=== PATIENT | female | born 1945 | race Caucasian/White ===

== ENCOUNTER → 2017-02-13 13:54 | Outpatient (CLI) | payer MEDICARE, OTHER ==
[2015-01-17 07:07] VITALS: BMI 26.5
[~2017-02-13 13:54] MED LIST: ALBUTEROL0.63 MG/3 INH; ATROVENT 0.06%15 ML NS; AZELASTINE137 MCG/0. NASAL; DALIRESP500 MCG PO; DULERA 100 MCG8.8 GM INH; FLUTICASONE PRO16 GM NASAL; MAG-OX 400 MG400 MG PO; MUCINEX600 MG PO; MULTIPLE VITAMI1 TA1 PO; PROVENTIL HFA6.7 GM INH; REQUIP1 MG PO; SINGULAIR10 MG PO
== END | disposition home or self-care (01) ==
LOC: D.RT 02-11 09:00 → D.LAB 02-11 10:00 → D.RAD 02-11 10:30 → D.RT 13:54
DX: J44.9 Chronic obstructive pulmonary disease, unspecified (principal)

== ENCOUNTER 2017-07-24 12:17 | Day surgery (SDC) | payer MEDICARE ==
[~2017-07-24] VITALS: Ht 154.9 cm; Wt 71.8 kg
--- NOTE | ~2017-07-24 | OP ---
PATIENT NAME: SHIKHA FLORES MEDICAL RECORD: [id number] :43 LOCATION:[facility] ADMISSION DATE: SURGEON: BRANT JACOBSON DO DATE OF OPERATION: 07/24/2017 PROCEDURE: Colonoscopy with polypectomy and biopsies. INDICATIONS FOR PROCEDURE: Change in bowel habits, right lower quadrant abdominal pain, abnormal findings on CT. SCOPE: Olympus video pediatric colonoscope. MEDICATIONS: Propofol 400 mg IV per anesthesia. WITHDRAWAL TIME: 42 minutes. ESTIMATED BLOOD LOSS: Minimal. COMPLICATIONS: None. FINDINGS: Informed consent was given. The patient was made comfortable with the above medication. After reaching an adequate level of sedation by slow IV push, the patient was placed on her left side. A digital rectal examination was performed and revealed an external hemorrhoid. The endoscope was then advanced under direct visualization through the rectum to the cecum with visualization of the appendiceal orifice and ileocecal valve. In the cecum and ascending colon, there were some changes that could be consistent with colitis, with decreased vascular markings and some edematous mucosa. Random biopsies were taken from both the cecum and the ascending colon. These will be submitted for histology. In the ascending colon, there were 5 separate polyps which were benign-appearing and sessile. They ranged in size from 3-5 mm in diameter. They were removed using hot forceps in 1 piece and completely retrieved. At one of these sites, there was some bleeding, which was not stopping with cauterization on its own, so a single endoclip was placed for hemostasis successfully. In the transverse colon, there were 3 separate polyps. These were larger polyps ranging in size from 7 mm to 1 cm in diameter. These were removed using EMR technique with a saline injection for a saline pillow and snare removal. Cauterization was also used to burn any residual polypoid tissue. In the descending colon, there were two separate polyps which were benign-appearing and sessile. They ranged approximately 2-4 mm in diameter. They were removed using hot forceps in 1 piece and completely retrieved. In the sigmoid colon, there was another polyp that measured approximately 5 mm in diameter. It was removed in 1 piece using hot snare and completely retrieved. Diverticulosis of mild severity was located in the descending and sigmoid colon on this examination. Retroflexion was performed in the rectum with a normal appearing rectal valve. The endoscope was withdrawn from the patient. The patient tolerated the procedure well and there were no complications. IMPRESSION: 1. Multiple polyps as described above removed using various techniques including EMR technique with saline injection and snare removal, hot polyp forceps removal, and hot snare removal. A single endoclip was placed for hemostasis successfully at one of the polyp sites (ascending colon). 2. Diverticulosis of mild severity in the left side of the colon. OPERATIVE REPORT [id number] SHIKHA FLORES 3. Single lipoma measuring approximately 1.5-2 cm located in the transverse colon. 4. External hemorrhoids. PLAN AND RECOMMENDATIONS: 1. Discharge home when recovery parameters are met. 2. High fiber diet. 3. Follow up biopsy specimen results. 4. Continue current medications. 5. Recall colonoscopy in 3-6 months after further workup of this abdominal mass is completed. TRANSINT:[id number] Voice Confirmation ID: [id number] DOCUMENT ID: [id number] BRANT JACOBSON DO at 0842 CC: [id number] DICTATION DATE: 07/24/17 1605 [facility]: 07/24/17 1711 [facility] 07/24/17 [facility] [address] [place] [address]
[2017-07-24] MEDS ORDERED: FUROSEMIDE20 MG PO (13:30)
[2017-07-24] MEDS ORDERED: KLOR-CON 1010 MEQ PO (13:30)
[2017-07-24] MEDS ORDERED: CELEBREX50 MG PO (13:31)
[2017-07-24 13:32] VITALS: BP 131/57; Ht 154.9 cm; Wt 71.8 kg
[2017-07-24 14:50] LABS: BASOPHILS 0.2 % (0-2); EOSINOPHILS 0.9 % (0-7); HEMATOCRIT 43.7 % (36.0-48.0); HEMOGLOBIN 15.4 g/dL (12-16); IMMATURE GRANULOCYTES 0.2 % (0-5); LYMPHOCYTES 20.1 % (15-50); MCH 34.6 pg (26.0-34.0); MCHC 35.2 g/dL (31.0-37.0); MCV 98.2 fL (80.0-100.0); MEAN PLATELET VOLUME 10.2 fL (7.4-10.4); MONOCYTES 6.5 % (2-11); NEUTROPHILS 72.1 % (40-80); PLATELET COUNT 204 10x3/uL (130-400); RBC 4.45 10x6/uL (4.00-5.40); RDW 12.5 % (11.5-14.5); WBC 8.6 10x3/uL (4.8-10.8)
[2017-07-24 15:23] LABS: ANION GAP 17.5 mmol/L (8-16); CALCIUM 8.7 mg/dL (8.5-10.1); CARBON DIOXIDE 23.9 mmol/L (21.0-32.0); CREATININE - SERUM 0.9 mg/dL (0.6-1.3); POTASSIUM - SERUM 3.4 mmol/L (3.5-5.1)
== END 2017-07-24 17:30 | disposition home or self-care (01) ==
LOC: D.OPS 12:17
PROVIDERS: Anesthesiology
DX: R19.4 Change in bowel habit (principal); R10.31 Right lower quadrant pain; D12.2 Benign neoplasm of ascending colon; D12.4 Benign neoplasm of descending colon; D12.5 Benign neoplasm of sigmoid colon; D12.3 Benign neoplasm of transverse colon; F17.200 Nicotine dependence, unspecified, uncomplicated; J44.9 Chronic obstructive pulmonary disease, unspecified; M19.90 Unspecified osteoarthritis, unspecified site; Z01.812 Encounter for preprocedural laboratory examination

== ENCOUNTER 2017-07-26 09:29 | Emergency (ER) | payer MEDICARE ==
[2017-07-24 13:32] VITALS: BMI 29.9
[~2017-07-26 09:29] MED LIST changes: +CELEBREX50 MG PO; +FUROSEMIDE20 MG PO; +KLOR-CON 1010 MEQ PO
[2017-07-26 10:05] LABS: BASOPHILS 0.2 % (0-2); EOSINOPHILS 1.1 % (0-7); HEMATOCRIT 42.1 % (36.0-48.0); HEMOGLOBIN 14.8 g/dL (12-16); IMMATURE GRANULOCYTES 0.1 % (0-5); LYMPHOCYTES 19.5 % (15-50); MCH 34.4 pg (26.0-34.0); MCHC 35.2 g/dL (31.0-37.0); MCV 97.9 fL (80.0-100.0); NEUTROPHILS 69.1 % (40-80); PLATELET COUNT 192 10x3/uL (130-400); RDW 12.6 % (11.5-14.5); WBC 8.3 10x3/uL (4.8-10.8)
[2017-07-26 10:20] LABS: ALBUMIN 3.7 g/dL (3.4-5.0); ANION GAP 13.8 mmol/L (8-16); BILIRUBIN - TOTAL 0.62 mg/dL (0.2-1.3); CALCIUM 8.8 mg/dL (8.5-10.1); CARBON DIOXIDE 24.3 mmol/L (21.0-32.0); POTASSIUM - SERUM 3.1 mmol/L (3.5-5.1); PROTEIN - SERUM 6.8 g/dL (6.4-8.2)
[2017-07-26 10:32] LABS: INR 0.98 (0.85-1.17); PROTIME 12.6 SECONDS (11.6-15.0)
[2017-07-26 13:09] LABS: APPEARANCE CLEAR (CLEAR); BACTERIA MODERATE /hpf (NONE SEEN); BILIRUBIN NEGATIVE (NEGATIVE); COLOR YELLOW (YELLOW); EPITHELIAL CELLS 0-5 /hpf (0-5); GLUCOSE NEGATIVE (NEGATIVE); KETONE MODERATE mg/dL (NEGATIVE); MUCUS <1+ /lpf (NONE SEEN); NITRITE NEGATIVE (NEGATIVE); PROTEIN NEGATIVE (NEGATIVE); RED CELLS - URINE RARE /hpf (0-5); UROBILINOGEN NORMAL (NORMAL); WHITE CELLS - URINE 0-5 /hpf (0-5)
== END 2017-07-26 14:00 | disposition home or self-care (01) ==
LOC: D.ER 09:29
PROVIDERS: Emergency Medicine; Nurse Practitioner Family
DX: R10.9 Unspecified abdominal pain (principal); K52.9 Noninfective gastroenteritis and colitis, unspecified; J44.9 Chronic obstructive pulmonary disease, unspecified; F17.200 Nicotine dependence, unspecified, uncomplicated

== ENCOUNTER → 2017-10-15 20:00 | Outpatient (CLI) | payer MEDICARE ==
[2017-07-24 13:32] VITALS: BMI 29.9
== END | disposition home or self-care (01) ==
LOC: D.MAMMO 15:30
DX: Z12.31 Encounter for screening mammogram for malignant neoplasm of breast (principal)

== ENCOUNTER 2018-02-17 08:24 | Day surgery (SDC) | payer MEDICARE ==
[~2018-02-17] VITALS: Ht 154.9 cm; Wt 70.5 kg
--- NOTE | ~2018-02-17 | OP ---
PATIENT NAME: SHIKHA FLORES MEDICAL RECORD: [id number] :43 LOCATION:[facility] ADMISSION DATE: SURGEON: BRANT JACOBSON DO DATE OF OPERATION: 02/17/2018 PROCEDURE: Colonoscopy with polypectomy. INDICATIONS FOR PROCEDURE: Personal history of colon polyps. Her last colonoscopy was 07/24/2017. SCOPE: Olympus video pediatric colonoscope. MEDICATIONS: Propofol 600 mg IV per anesthesia. WITHDRAWAL TIME: 36 minutes. ESTIMATED BLOOD LOSS: Minimal. COMPLICATIONS: None. FINDINGS: Informed consent was given. The patient was made comfortable with the above medication. After reaching an adequate level of sedation by slow IV push, the patient was placed on her left side. A digital rectal examination was performed and was normal. The endoscope was then advanced under direct visualization through the rectum to the cecum, confirmed by the presence of the appendiceal orifice and ileocecal valve. The endoscope was slowly withdrawn and mucosa was carefully examined. The prep quality was fair. There were 4 polyps visualized on today's examination. The first was an ascending colon polyp, which measured approximately 6 mm in diameter. It was removed using a hot snare in 1 piece. There were 3 polyps located in the transverse colon. They were all benign-appearing and sessile. They ranged in size from 3-6 mm in diameter. One was removed using a hot snare in piecemeal fashion. The other 2 were removed using hot forceps. There was evidence of diverticulosis involving the sigmoid colon without evidence of diverticulitis. Retroflexion was performed in the rectum with a normal appearing rectal wall. The endoscope was then withdrawn from the patient. The patient tolerated the procedure well and there were no complications. IMPRESSION: 1. Four polyps as described above, removed using a combination of a hot snare and a hot forceps. 2. Diverticulosis of the sigmoid colon without diverticulitis. 3. Otherwise, normal colonoscopy. PLAN AND RECOMMENDATIONS: 1. Discharge home when recovery parameters are met. 2. Follow up biopsy specimen results. 3. Recall colonoscopy in 1-2 years pending pathology of the above removed polyps. TRANSINT:[id number] Voice Confirmation ID: [id number] DOCUMENT ID: [id number] OPERATIVE REPORT [id number] SHIKHA FLORESBRANT MURRAY DO CC: [id number] DICTATION DATE: 02/17/18 1051 PANEL MACHINE OPERATOR: 02/17/18 1101 [facility] [address] [facility] [place] [address]
[2018-02-17 08:41] LABS: HEMOGLOBIN 16.1 g/dL (12-16); MCH 34.5 pg (26.0-34.0); MCV 98.5 fL (80.0-100.0); MEAN PLATELET VOLUME 10.4 fL (7.4-10.4); RBC 4.67 10x6/uL (4.00-5.40); RDW 12.6 % (11.5-14.5); WBC 6.8 10x3/uL (4.8-10.8)
[2018-02-17] MEDS ORDERED: NASONEX NASAL S17 GM NS (09:27)
[2018-02-17 09:39] VITALS: BP 107/47; Ht 154.9 cm; Wt 70.5 kg
== END 2018-02-17 12:20 | disposition home or self-care (01) ==
LOC: D.OPS 08:24
PROVIDERS: Anesthesiology
DX: D12.2 Benign neoplasm of ascending colon (principal); K63.5 Polyp of colon; K57.30 Diverticulosis of large intestine without perforation or abscess without bleeding; Z86.010 Personal history of colon polyps; Z01.812 Encounter for preprocedural laboratory examination

== ENCOUNTER 2018-11-11 19:00 | Outpatient (CLI) | payer MEDICARE ==
[2018-02-17 09:39] VITALS: BMI 29.3
[~2018-11-11 19:00] MED LIST changes: +NASONEX NASAL S17 GM NS
== END 2018-11-11 23:59 | disposition home or self-care (01) ==
LOC: D.MAMMO 19:00
PROVIDERS: ATTEND Family Medicine
DX: Z12.31 Encounter for screening mammogram for malignant neoplasm of breast (principal)

== ENCOUNTER → 2018-12-16 13:43 | Outpatient (CLI) | payer MEDICARE ==
[2018-02-17 09:39] VITALS: BMI 29.3
[2018-12-18 12:09] LABS: IGG SUBCLASS 1 318 mg/dL (248-810); IGG SUBCLASS 2 126 mg/dL (130-555); IGG SUBCLASS 3 67 mg/dL (15-102); IGG SUBCLASS 4 2 mg/dL (2-96)
== END | disposition home or self-care (01) ==
LOC: D.RT 13:43
PROVIDERS: ATTEND Internal Medicine Pulmonary Disease
DX: J44.9 Chronic obstructive pulmonary disease, unspecified (principal); D84.9 Immunodeficiency, unspecified

== ENCOUNTER → 2018-12-23 15:14 | Outpatient (CLI) | payer MEDICARE ==
[2018-02-17 09:39] VITALS: BMI 29.3
== END | disposition home or self-care (01) ==
LOC: D.US 15:14
PROVIDERS: ATTEND Internal Medicine Pulmonary Disease
DX: M79.605 Pain in left leg (principal)

== ENCOUNTER → 2019-06-08 09:44 | Outpatient (CLI) | payer MEDICARE ==
[2018-02-17 09:39] VITALS: BMI 29.3
[2019-06-10 06:09] LABS: IGG SUBCLASS 1 337 mg/dL (248-810); IGG SUBCLASS 2 133 mg/dL (130-555); IGG SUBCLASS 3 69 mg/dL (15-102); IGG SUBCLASS 4 3 mg/dL (2-96); IGGS - IGG SERUM 578 mg/dL (700-1600)
== END | disposition home or self-care (01) ==
LOC: D.RT 03-23 13:00 → D.RAD 03-23 13:45 → D.LAB 03-23 14:00 → D.RT 09:44
PROVIDERS: ATTEND Internal Medicine Pulmonary Disease
DX: J44.9 Chronic obstructive pulmonary disease, unspecified (principal)

== ENCOUNTER → 2020-09-12 11:58 | Outpatient (CLI) | payer MEDICARE, MEDICAID ==
[2018-02-17 09:39] VITALS: BMI 29.3
== END | disposition home or self-care (01) ==
LOC: D.LAB 11:55
PROVIDERS: ATTEND Internal Medicine Pulmonary Disease
DX: Z11.52 Encounter for screening for COVID-19 (principal)

== ENCOUNTER → 2020-09-16 13:27 | Outpatient (CLI) | payer MEDICARE, MEDICAID ==
[2018-02-17 09:39] VITALS: BMI 29.3
== END | disposition home or self-care (01) ==
LOC: D.RT 05-23 14:00 → D.RAD 05-23 14:45 → D.RT 06-13 12:34
PROVIDERS: ATTEND Internal Medicine Pulmonary Disease
DX: J44.9 Chronic obstructive pulmonary disease, unspecified (principal)